=== PATIENT | female | born 1980 | race Caucasian/White ===

== ENCOUNTER → 2016-12-07 | Outpatient (CLI) | payer BC, OTHER ==
[2016-06-01 09:57] VITALS: BP 95/68; PULSE 92
[~2016-12-07] MED LIST: ACET-1311 PO; IBUP1CAP9 PO; IMD/2 PO; MULT-513 PO; PROC1TAB5 PO; ZOLP10TA PO
[2016-12-07 13:28] VITALS: BP 93/68; PULSE 96; TEMP 36.8; O2SAT 98
--- NOTE | 2016-12-07 17:00 | Radiation Oncology Follow-Up ---
Radiation Oncology Follow-Up Date of Visit Dec 07, 2016. Reason For Visit 6 month follow-up Radiation Completion Date External Beam with Tandem and Ovoid x 5 04/28/16 Diagnosis (1) Cervical carcinoma Status: Resolved Onset Date: 12/27/2015 Histology Subtype: squamous cell carcinoma Stage: ll ((A2)) Permanent Comment: Abnormal vaginal bleeding 6 months Pap smear 12/27/2015 showing squamous cell carcinoma Cervical biopsy 12/28/2015 poorly differentiated squamous cell carcinoma Status post robotic laparoscopic salpingectomy with bilateral Oophoropexy. Pelvic and periaortic lymphadenectomy 02/08/2016 Status post completion of radiation therapy. She received external beam therapy followed by tandem and ovoids. The dose of external beam therapy was 5280 cGy. The dose of radiation with tandem and ovoids was 2750 cGy. Last Edited By: Brinda Jarrett on May 12, 2016 11:20 History of Present Illness Ms. Rodriguez is a 35-year-old female who is 1 para 1-0-0-1. She presented with heavy vaginal bleeding and was seen at the emergency department. On examination she was found to have heavy vaginal bleeding with a decrease of her hemoglobin to 11. A speculum examination at that time revealed pulling of blood in the posterior vagina and an obvious cervical mass. She had undergone a previous Pap smear on 09/23/2013 that was negative for intraepithelial lesions or malignancies. Case: [id number]. On 12/28/2015 a repeat Pap smear was taken which was positive showing cells consistent with a squamous cell carcinoma. Case: [id number]. A cervical biopsy was also performed of a friable cervical mass. This revealed an infiltrative poorly differentiated squamous cell carcinoma. A solitary focus of invasion into the cervical stroma is seen with a papillary architecture. Case: [id number]. Patient underwent a transvaginal ultrasound on December 27 which showed a uterus measuring 10.0 x 5.6 x 4.2 cm with an endometrial thickness of 7 mm and the cervix that was noted to be bulky without any defined mass measuring 6.6 cm. Right ovary measured 2.7 x 2.1 x 2.2 cm with a 1.4 cm dominant follicle on that side. The left ovary measured 3.2 x 1.4 x 1.3 cm with no free fluid noted in the pelvis. The patient was subsequently seen at [facility] by Dr. Caballero on 01/03/2016. His pelvic exam revealed a 3 x 2 cm exophytic mass noted on the face of the cervix which was difficult to visualize due to bleeding after insertion of the speculum. Additional staging procedures were discussed. On 01/07/2016 the patient underwent a CT scan of the chest abdomen pelvis with IV contrast. No pulmonary nodules or mediastinal or hilar adenopathy was appreciated. In the abdomen no abnormalities were noted of the liver and pancreas spleen or adrenal glands. The kidneys were unremarkable and no pelvic adenopathy was appreciated. The uterus was identified with an exophytic mass extending from the inferior cervix into the upper vagina measuring 3.6 x 4.2 x 6.6 cm. The ovaries and adnexa were normal. No evidence of bony destructive lesions were appreciated. On 01/07/2016 Dr. Caballero performed an examination under anesthesia, repeat cervical biopsy, cystoscopy and rigid bronchoscopy. The patient was noted to have a large exophytic friable lesion in the cervix measuring approximately 8 cm in greatest dimension. The lesion was quite friable and involved the posterior vagina just inferior to the cervix. There was no palpable parametrial involvement. There was normal reflux of urine from the bilateral ureteral orifices. There was no evidence of rectal involvement. The cervical biopsy confirmed squamous cell carcinoma. Accession #: [id number]. Given the large size of the lesion estimated 8 cm the patient was not felt to be a good candidate for primary radical hysterectomy. He therefore recommended a robotic-assisted pelvic and periaortic lymphadenectomy, bilateral oophoropexy and resection of a fimbriated bilateral fallopian tubes. One left pelvic lymph node was identified and was negative for metastatic carcinoma. 2 right sided pelvic lymph nodes were identified and negative for metastatic carcinoma. Periaortic tissue showed no lymph node tissue identified. 3 right common iliac lymph nodes were negative for metastatic carcinoma. The right fallopian tube showed no pathologic alterations in the left fallopian tube showed no pathologic alterations. Accession #: [id number] Caballero discussed with the patient the option of primary radiotherapy along with sensitizing weekly cisplatin 40 mg/ m. The patient did go for a second opinion to see Dr. Rashid Barba on 2015. He did discuss the case with Dr. Caballero and agreed with the recommendation for primary chemoradiation following the subsequent node dissection oophoropexy. Dr. Caballero was kind enough to ask us to see the patient in referral for discussion of the role of definitive chemoradiation. It is for this reason the patient is seen in referral. She was seen by medical oncology and decision was to treat with combined radiation and chemotherapy. She will receive external beam treatment Followed by tandem and ovoids. The external beam treatment was completed 2015 received 5280 cGy. She received 5 tandem and ovoid High-dose treatments. These were each 550 cGy for a total 2750 cGy Interim History She's been doing well over the past 6 months. She denies any vaginal discharge or bleeding. She does have vaginal dryness. She's had no change in urination. Bowel movements are regular. She has had follow-up visits with medical oncology as well as her gynecologic oncologist. She had a Pap smear 2015. This showed atypical squamous cells of undetermined significance. Specimen [id number]. She is for repeat Pap smear in one month. She does become fatigued more easily. She feels there is some sensitivity in the skin in the lower pelvic area since completing the treatment. She is not using the vaginal dilator and she is not sexually active. Her most recent PET scan showed complete response to treatment. Allergies Coded Allergies: No Known Allergies (Unverified , 04/28/16) Home Medications Scheduled Multivitamins/Minerals (Mvi With Minerals), 1 TAB PO QAM Scheduled PRN Acetaminophen (Tylenol), 650 MG PO Q6H PRN for Pain Ibuprofen (Ibuprofen), 200 MG PO Q4H PRN for Pain Loperamide Hcl (Imodium), 2 MG PO DIRECTED PRN for Diarrhea Zolpidem Tartrate (Ambien), 10 MG PO HS PRN for Sleep Review of Systems Gastrointestinal: Symptoms: WNL GI Comments: No fiber supplements;1-2 formed BMs/day Oral: Symptoms: No Problems Respiratory: Symptoms: WNL Urinary: Symptoms: WNL Comments: Some urgency;Wears light pad as precautions;Stress incont - improving Skin: Symptoms: No Problems Other Skin Symptoms: Skin more sensitive in lower pelvic area since treatment Physical Exam Vital Signs Date Time Temp Pulse Resp B/P Pulse Ox O2 Delivery O2 Flow Rate FiO2 12/07/16 13:28 36.8 96 16 93/68 98 Pain: Patient Pain Scale: 0 - 10 Initial Pain Intensity: 0.0 Fatigue: None General Appearance: no apparent distress Eyes: normal inspection, EOMI ENT: normal ENT inspection, hearing grossly normal Respiratory/Chest: lungs clear, no respiratory distress, no accessory muscle use Cardiovascular: regular rate, rhythm, no gallop, no murmur Abdomen: non tender, soft Genitourinary - Female: Normal external genitalia. There is some narrowing of the vagina just inside the introitus. There is mild induration and telangiectasia the posterior wall of the vagina. There are no visible or palpable lesions. There is no vaginal bleeding or discharge. Cervix is smooth without masses or visible lesions. Bimanual examination revealed no areas of tenderness. There are no masses. There is no adenopathy of the groin. Extremities: no pedal edema Neurologic/Psychiatric: no motor/sensory deficits, alert, normal mood/affect Skin: warm/dry Lymphatic: no adenopathy Laboratory Studies Test 12/04/16 13:43 White Blood Count 4.96 K/uL (4.8-10.8) Red Blood Count 4.25 M/uL (4.2-5.4) Hemoglobin 12.7 g/dL (12.0-16.0) Hematocrit 37.1 % (37-47) Mean Corpuscular Volume 87.3 fL (80-100) Mean Corpuscular Hemoglobin 29.9 pg (25-34) Mean Corpuscular Hemoglobin Concent 34.2 g/dl (32-36) Platelet Count 223 K/uL (130-400) Mean Platelet Volume 10.7 fL (7.4-10.4) Neutrophils (%) (Auto) 69.9 % Lymphocytes (%) (Auto) 21.6 % Monocytes (%) (Auto) 7.3 % Eosinophils (%) (Auto) 0.8 % Basophils (%) (Auto) 0.2 % Neutrophils # (Auto) 3.47 K/uL (1.4-6.5) Lymphocytes # (Auto) 1.07 K/uL (1.2-3.4) Monocytes # (Auto) 0.36 K/uL (0.11-0.59) Eosinophils # (Auto) 0.04 K/uL (0-0.5) Basophils # (Auto) 0.01 K/uL (0-0.2) RDW Standard Deviation 43.6 fL (36.4-46.3) RDW Coefficient of Variation 13.7 % (11.5-14.5) Immature Granulocyte % (Auto) 0.2 % Immature Granulocyte # (Auto) 0.01 K/uL (0.00-0.02) Sodium Level 143 mmol/L (136-145) Potassium Level 3.9 mmol/L (3.5-5.1) Chloride Level 107 mmol/L (98-107) Carbon Dioxide Level 28 mmol/L (21-32) Anion Gap 8.0 mmol/L (3-11) Blood Urea Nitrogen 16 mg/dl (7-18) Creatinine 0.80 mg/dl (0.60-1.20) Estimated GFR () 109.2 Estimated GFR (Non- 94.2 BUN/Creatinine Ratio 19.6 (10-20) Random Glucose 100 mg/dl (70-99) Calcium Level 8.8 mg/dl (8.5-10.1) Total Bilirubin 0.3 mg/dl (0.2-1) Aspartate Amino Transferase (AST) 13 U/L (15-37) Alanine Aminotransferase (ALT) 27 U/L (12-78) Alkaline Phosphatase 65 U/L (45-117) Lactate Dehydrogenase 169 U/L (84-246) Total Protein 7.2 gm/dl (6.4-8.2) Albumin 3.7 gm/dl (3.4-5.0) Globulin 3.5 gm/dl (2.5-4.0) Albumin/Globulin Ratio 1.1 (0.9-2) Additional Studies PET/CT CLINICAL HISTORY: Cervical cancer. Restaging following chemotherapy and radiation. TECHNIQUE: A PET/CT was performed from the skull base through the upper thighs following intravenous injection of 15.45 mCi of F 18 FDG IV. The injection was performed at 6:51 AM on July 26, 2016 and imaging began at 7:40 AM on July 26, 2016. Unenhanced CT was performed for attenuation correction purposes and anatomic localization. COMPARISON STUDY: CT of the chest abdomen and pelvis January 07, 2016 and PET/CT March 08, 2016. FINDINGS: Head and neck: No suspicious FDG uptake is identified within the neck. There is no cervical lymphadenopathy. Chest: No suspicious FDG uptake is identified within the chest. There is no thoracic lymphadenopathy. The lungs are suboptimally assessed due to respiratory motion but no suspicious nodules are identified. Abdomen and Pelvis: Marked FDG uptake within the previously described cervical mass has resolved and is now equivalent to background soft tissue. The previously described FDG avid left iliac nodes are now normal in size with no abnormal FDG uptake. No abdominal or pelvic lymphadenopathy is present. Musculoskeletal: No suspicious skeletal uptake is identified. IMPRESSION: Interval resolution of FDG uptake within the previously described cervical mass and left external iliac lymph nodes consistent with a complete response by PET/CT. No FDG avid disease identified. Electronically signed by: Riley Carranza M.D. 07/26/2016 2:11 PM Assessment & Plan Plan: Continue regular follow-up with medical oncology, her PCP, and the gynecologic oncologist. She hasn't appointment for recheck Pap smear in one month. I did advise her that she should start using the vaginal dilator. She previously was instructed to use this twice a week for 10 minutes. She will not need to use the dilator if she becomes sexually active. We asked her to return to our office in 1 year. She will call if she has any questions or concerns in the interim. Total Time In Follow-Up I spent 25 minutes speaking to the patient performing examination. I spent 15 minutes reviewing information in completing this note. Copy To Sterling Martinez D.O.; Skyler Caballero M.D.; Demi Ospina, C.R.N.P.
== END | disposition home or self-care (01) ==
LOC: C.ONC 13:07
PROVIDERS: ATTEND Physician Assistant Medical
DX: Z08 Encounter for follow-up examination after completed treatment for malignant neoplasm (principal); Z92.3 Personal history of irradiation; Z85.41 Personal history of malignant neoplasm of cervix uteri

== ENCOUNTER → 2017-03-19 | Outpatient (CLI) | payer BC ==
[~2017-03-19] MED LIST changes: -PROC1TAB5 PO
[2017-03-19 14:44] LABS: URINE APPEARANCE CLOUDY (CLEAR); URINE BILIRUBIN NEG (NEG); URINE COLOR YELLOW; URINE NITRITE NEG (NEG); URINE PH 5.5 (4.5-7.5); URINE SPECIFIC GRAVITY 1.016 (1.000-1.030); UROBILINOGEN NEG (NEG)
[2017-03-19 14:47] LABS: MANUAL MICROSCOPIC REQUIRED? NO; REVIEW REQ? YES
== END | disposition home or self-care (01) ==
LOC: C.LAB 13:17
PROVIDERS: ATTEND Nurse Practitioner Women's Health
DX: R30.0 Dysuria (principal)

== ENCOUNTER → 2017-03-29 | Outpatient (CLI) | payer BC ==
[2017-03-29 09:40] LABS: URINE APPEARANCE CLOUDY (CLEAR); URINE BILIRUBIN NEG (NEG); URINE COLOR DK YELLOW; URINE EPITHELIAL CELL AUTO >30 /lpf (0-5); URINE NITRITE NEG (NEG); URINE SPECIFIC GRAVITY 1.025 (1.000-1.030); UROBILINOGEN NEG (NEG)
[2017-03-29 09:46] LABS: MANUAL MICROSCOPIC REQUIRED? NO; REVIEW REQ? NO
== END | disposition home or self-care (01) ==
LOC: C.LAB 08:10
PROVIDERS: ATTEND Nurse Practitioner Women's Health
DX: R30.0 Dysuria (principal)

== ENCOUNTER → 2017-06-06 | Outpatient (CLI) | payer BC ==
[~2017-06-06] MED LIST changes: +OPTIRAY 320 IV PRN
--- NOTE | 2017-06-06 07:34 | DIAGNOSTIC IMAGING REPORT ---
CT SCAN OF THE CHEST WITH IV CONTRAST CLINICAL HISTORY: Cervical cancer. COMPARISON STUDY: PET/CT dated 07/26/2016. Chest chest and abdominal CT scans dated 01/07/2016. TECHNIQUE: Following the IV administration of 93 cc of Optiray 320, CT scan of the thorax was performed from the thoracic inlet to the upper abdomen. Images are reviewed in the axial, sagittal, and coronal planes. IV contrast was administered without complication. A dose lowering technique was utilized adhering to the principles of ALARA. CT DOSE: 1579.72 mGy.cm FINDINGS: Thyroid: Imaged portions of the thyroid gland are normal in size and attenuation. A 9 mm low-attenuation nodule is noted in the right lobe. Thoracic aorta: The thoracic aorta is normal in caliber and demonstrates standard 3-vessel arch anatomy. No dissection is seen. Pulmonary vasculature: The pulmonary trunk is top normal in caliber. There are no filling defects identified in the central pulmonary vessels to indicate pulmonary embolus. Note that this examination was not protocoled for evaluation of the pulmonary arteries. Heart: The heart is normal in size and configuration, and without pericardial effusion. Lungs and pleural spaces: The lungs and pleural spaces are clear. Mediastinum: There is ill-defined low attenuation soft tissue in the anterior mediastinum, likely representing thymic rebound. This is similar to previous. There is no mediastinal lymphadenopathy. Bertha: Clear. Axillae: There is no axillary lymphadenopathy. Upper abdomen: Scattered hepatic hypodensities measure up to 1.3 cm are unchanged dating back to 01/05/2016. Is likely represent small cysts and/or hemangiomas. Hepatic steatosis is suggested. There is a tiny hiatal hernia. Skeletal structures: No lytic or blastic bony lesions are seen. IMPRESSION: 1. There is no evidence of intrathoracic metastatic disease. 2. The lungs are clear. 3. Question residual thymic tissue/thymic rebound in the anterior mediastinum. This is similar to prior studies. 4. There is a 9 mm low-attenuation nodule in the right thyroid lobe. If not previously performed a thyroid ultrasound is recommended for further assessment. Electronically signed by: Hardik Mcguire M.D. 06/06/2017 7:33 AM Dictated Date/Time: 06/06/2017 7:27 AM
--- NOTE | 2017-06-06 07:37 | DIAGNOSTIC IMAGING REPORT ---
ABD/PELVIS IV CONTRAST ONLY CLINICAL HISTORY: 36 years-old Female presenting with CERVICAL CA, follow-up. TECHNIQUE: Multidetector CT of the abdomen and pelvis was performed after the administration of oral and intravenous contrast. IV contrast: 93 mL of Optiray 320. A dose lowering technique was used consistent with the principles of ALARA (as low as reasonably achievable). COMPARISON: 01/07/2016. CT DOSE (mGy.cm): The estimated cumulative dose is 1579.[address] chest. FINDINGS: [employer] topogram: Unremarkable. Lung bases: Lung bases clear. Normal heart size. No pericardial or pleural effusion. Liver: Normal morphology. Well-defined hypodensities scattered throughout the liver parenchyma unchanged from prior exam and consistent with hepatic cysts or hamartomas. Patent hepatic vasculature. Biliary: No intrahepatic or extrahepatic biliary ductal dilatation. Normal gallbladder. Pancreas: Normal. Spleen: Normal. Adrenal glands: Normal. Kidneys and ureters: Normal. No hydronephrosis. Bladder: Mild circumferential bladder wall thickening. Pelvic organs: Hypoattenuation of the cervix with fascial thickening along the mesorectal fascia and paracervical region. Translocation of the ovaries to the bilateral lower quadrants. Bowel: Large stool burden in the rectum and sigmoid colon. No bowel obstruction. Normal appendix. Peritoneal cavity: No free fluid or intraperitoneal gas. Vasculature: Aorta and IVC patent and normal in caliber. Lymph nodes: No enlarged lymph nodes in the abdomen or pelvis. Abdominal wall: Small fat-containing umbilical hernia. Musculoskeletal: Normal. IMPRESSION: 1. No evidence of metastatic disease in abdomen or pelvis. 2. Hypoattenuation of the cervix with associated fascial thickening in the pelvis could be secondary to post radiation change. 3. 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 Electronically signed by: Iván Shearer M.D. 06/06/2017 7:35 AM Dictated Date/Time: 06/06/2017 7:28 AM
== END | disposition home or self-care (01) ==
LOC: C.CTS 06:28
PROVIDERS: ATTEND Internal Medicine Hematology & Oncology
DX: C53.0 Malignant neoplasm of endocervix (principal); E04.1 Nontoxic single thyroid nodule

== ENCOUNTER → 2017-06-13 | Outpatient (CLI) | payer BC ==
[~2017-06-13] MED LIST changes: -OPTIRAY 320 IV PRN
--- NOTE | 2017-06-13 09:02 | DIAGNOSTIC IMAGING REPORT ---
THYROID ULTRASONOGRAPHY CLINICAL HISTORY: Multinodular thyroid gland. Cervical carcinoma. COMPARISON STUDY: No previous studies for comparison. FINDINGS: The right lobe of thyroid measures 5 x 1.7 x 1.6 cm. The left lobe measures 5.1 x 1.4 x 1.6 cm. Within the upper pole of the right lobe of the thyroid there is a circumscribed, wider than tall, predominantly cystic nodule measuring 12 x 9 x 6 mm. Within the midpole there is a hypoechoic nodule measuring 5 x 3 x 5 mm. Within the left lobe, there is a upper pole hypoechoic nodule measuring 4 x 3 x 3 mm. None of the nodules have suspicious ultrasonographic characteristics. IMPRESSION: Multinodular thyroid gland. There are no nodules with suspicious ultrasonographic characteristics. Electronically signed by: Valdemar Monet M.D. 06/13/2017 9:00 AM Dictated Date/Time: 06/13/2017 8:58 AM
== END | disposition home or self-care (01) ==
LOC: C.ULTR 08:03
PROVIDERS: ATTEND Nurse Practitioner Family
DX: C53.0 Malignant neoplasm of endocervix (principal); E04.2 Nontoxic multinodular goiter

== ENCOUNTER → 2017-12-11 | Outpatient (CLI) | payer OTHER ==
[~2017-12-11] MED LIST changes: +SPR28 PO
[2017-12-11 13:23] VITALS: BP 93/60; PULSE 86; TEMP 36.6; O2SAT 96
--- NOTE | 2017-12-11 14:28 | Radiation Oncology Follow-Up ---
Radiation Oncology Follow-Up Date of Visit Dec 11, 2017. Reason For Visit Annual follow-up Radiation Completion Date 04/28/16 ext beam with tandem and ovoids Diagnosis (1) Cervical carcinoma Status: Resolved Onset Date: 12/27/2015 Histology Subtype: Squamous cell carcinoma Stage: ll (A 2) Permanent Comment: Abnormal vaginal bleeding 6 months Pap smear 12/27/2015 showing squamous cell carcinoma Cervical biopsy 12/28/2015 poorly differentiated squamous cell carcinoma Status post robotic laparoscopic salpingectomy with bilateral Oophoropexy. Pelvic and periaortic lymphadenectomy 02/08/2016 Status post completion of radiation therapy. She received external beam therapy followed by tandem and ovoids. The dose of external beam therapy was 5280 cGy. The dose of radiation with tandem and ovoids was 2750 cGy. Last Edited By: Brinda Jarrett on May 12, 2016 11:20 History of Present Illness Ms. Kendrick is a 1 para 1-0-0-1. She presented with heavy vaginal bleeding and was seen at the emergency department. On examination she was found to have heavy vaginal bleeding with a decrease of her hemoglobin to 11. A speculum examination at that time revealed pulling of blood in the posterior vagina and an obvious cervical mass. She had undergone a previous Pap smear on 09/23/2013 that was negative for intraepithelial lesions or malignancies. Case: [id number]. On 12/28/2015 a repeat Pap smear was taken which was positive showing cells consistent with a squamous cell carcinoma. Case: [id number]. A cervical biopsy was also performed of a friable cervical mass. This revealed an infiltrative poorly differentiated squamous cell carcinoma. A solitary focus of invasion into the cervical stroma is seen with a papillary architecture. Case: [id number]. Patient underwent a transvaginal ultrasound on December 27 which showed a uterus measuring 10.0 x 5.6 x 4.2 cm with an endometrial thickness of 7 mm and the cervix that was noted to be bulky without any defined mass measuring 6.6 cm. Right ovary measured 2.7 x 2.1 x 2.2 cm with a 1.4 cm dominant follicle on that side. The left ovary measured 3.2 x 1.4 x 1.3 cm with no free fluid noted in the pelvis. The patient was subsequently seen at [facility] by Dr. Caballero on 01/03/2016. His pelvic exam revealed a 3 x 2 cm exophytic mass noted on the face of the cervix which was difficult to visualize due to bleeding after insertion of the speculum. Additional staging procedures were discussed. On 01/07/2016 the patient underwent a CT scan of the chest abdomen pelvis with IV contrast. No pulmonary nodules or mediastinal or hilar adenopathy was appreciated. In the abdomen no abnormalities were noted of the liver and pancreas spleen or adrenal glands. The kidneys were unremarkable and no pelvic adenopathy was appreciated. The uterus was identified with an exophytic mass extending from the inferior cervix into the upper vagina measuring 3.6 x 4.2 x 6.6 cm. The ovaries and adnexa were normal. No evidence of bony destructive lesions were appreciated. On 01/07/2016 Dr. Caballero performed an examination under anesthesia, repeat cervical biopsy, cystoscopy and rigid bronchoscopy. The patient was noted to have a large exophytic friable lesion in the cervix measuring approximately 8 cm in greatest dimension. The lesion was quite friable and involved the posterior vagina just inferior to the cervix. There was no palpable parametrial involvement. There was normal reflux of urine from the bilateral ureteral orifices. There was no evidence of rectal involvement. The cervical biopsy confirmed squamous cell carcinoma. Accession #: [id number]. Given the large size of the lesion estimated 8 cm the patient was not felt to be a good candidate for primary radical hysterectomy. He therefore recommended a robotic-assisted pelvic and periaortic lymphadenectomy, bilateral oophoropexy and resection of a fimbriated bilateral fallopian tubes. One left pelvic lymph node was identified and was negative for metastatic carcinoma. 2 right sided pelvic lymph nodes were identified and negative for metastatic carcinoma. Periaortic tissue showed no lymph node tissue identified. 3 right common iliac lymph nodes were negative for metastatic carcinoma. The right fallopian tube showed no pathologic alterations in the left fallopian tube showed no pathologic alterations. Accession #: [id number] Caballero discussed with the patient the option of primary radiotherapy along with sensitizing weekly cisplatin 40 mg/ m. The patient did go for a second opinion to see Dr. Rashid Barba on 2015. He did discuss the case with Dr. Caballero and agreed with the recommendation for primary chemoradiation following the subsequent node dissection oophoropexy. Dr. Caballero was kind enough to ask us to see the patient in referral for discussion of the role of definitive chemoradiation. It is for this reason the patient is seen in referral. She was seen by medical oncology and decision was to treat with combined radiation and chemotherapy. She will receive external beam treatment Followed by tandem and ovoids. The external beam treatment was completed 2015 received 5280 cGy. She received 5 tandem and ovoid High-dose treatments. These were each 550 cGy for a total 2750 cGy Interim History She has been doing well over the past year. She denies any vaginal discharge or bleeding. She has had no issues with change of bowel habits. There is been no change in urination. She is been seen regularly by gynecologic oncology. She was seen 2 weeks ago and had a Pap smear. She did receive report that this was normal. She has been seen by medical oncology and had recheck CT scans last May. These did not show any recurrence of disease. She was diagnosed with a multinodular goiter at this past year. Allergies Coded Allergies: No Known Allergies (Unverified , 04/28/16) Home Medications Scheduled Ethinyl Estrad/Norgestimate (Sprintec 28), 1 TAB PO DAILY Multivitamins/Minerals (Mvi With Minerals), 1 TAB PO QAM Scheduled PRN Acetaminophen (Tylenol), 650 MG PO Q6H PRN for Pain Ibuprofen (Ibuprofen), 200 MG PO Q4H PRN for Pain Loperamide Hcl (Imodium), 2 MG PO DIRECTED PRN for Diarrhea Zolpidem Tartrate (Ambien), 10 MG PO HS PRN for Sleep Review of Systems Gastrointestinal: Symptoms: Diarrhea GI Comments: occ diarrhea Oral: Symptoms: No Problems Respiratory: Symptoms: WNL Urinary: Symptoms: WNL Skin: Symptoms: No Problems Physical Exam Vital Signs Date Time Temp Pulse Resp B/P (MAP) Pulse Ox O2 Delivery O2 Flow Rate FiO2 12/11/17 13:23 36.6 86 20 93/60 96 Fatigue: None General Appearance: no apparent distress Eyes: normal inspection, EOMI ENT: normal ENT inspection, hearing grossly normal Respiratory/Chest: lungs clear, no respiratory distress, no accessory muscle use Cardiovascular: regular rate, rhythm, no gallop, no murmur Abdomen: non tender, soft, no organomegaly Genitourinary - Female: external genitalia normal, + pertinent finding (There is foreshortening of the vagina. There is no vaginal discharge or irritation. Cervix is normal with easy visualization of the office. There are no palpable masses of the vagina.) Extremities: no pedal edema Neurologic/Psychiatric: no motor/sensory deficits, alert, normal mood/affect Skin: warm/dry Pain Management Patient Reports Pain: No Pain Management Plan She denies pain therefore requires no pain management. Laboratory Laboratory Results: not applicable Pathology Pathology Results: were reviewed, and pertinent findings noted in HPI Imaging Imaging Studies: were reviewed, and pertinent findings noted below Imaging Comments Patient: YAYA KENDRICK Address1: [address] [place] [address] Rec: [id number] Address2: Acct ID: [id number] [facility] Zip: [place] [address] Date: 1980 Sex: F Room/Bed: Ref Phy: Santosh Rothman M.D. SC: C.CTS Att Phy: Sterling Martinez D.O. Report #: [id number] Neelima Phy: Demi Ospina, C.R.N.PPeter Test: APIV Admit Phy: Sustainability Manager: [facility] Interpreting Phy: Iván Shearer MD Diagnosis: CERVICAL CA Ordering Phy: Sterling Martinez D.O. Service Date: 06/06/17 Admit Date: 06/06/17 MNE: [id number] CONF: DICTATED BY: Iván Shearer MD]] CC: Sterling Martinez D.O. Schrack, Shari A., C.R.N.PSantosh Jacobo M.D. Endcc: [~ rep ct add3]] ABD/PELVIS IV CONTRAST ONLY CLINICAL HISTORY: 36 years-old Female presenting with CERVICAL CA, follow-up. TECHNIQUE: Multidetector CT of the abdomen and pelvis was performed after the administration of oral and intravenous contrast. IV contrast: 93 mL of Optiray 320. A dose lowering technique was used consistent with the principles of ALARA (as low as reasonably achievable). COMPARISON: 01/07/2016. CT DOSE (mGy.cm): The estimated cumulative dose is 1579.[address] chest. FINDINGS: Report Analyst topogram: Unremarkable. Lung bases: Lung bases clear. Normal heart size. No pericardial or pleural effusion. Liver: Normal morphology. Well-defined hypodensities scattered throughout the liver parenchyma unchanged from prior exam and consistent with hepatic cysts or hamartomas. Patent hepatic vasculature. Biliary: No intrahepatic or extrahepatic biliary ductal dilatation. Normal gallbladder. Pancreas: Normal. Spleen: Normal. Adrenal glands: Normal. Kidneys and ureters: Normal. No hydronephrosis. Bladder: Mild circumferential bladder wall thickening. Pelvic organs: Hypoattenuation of the cervix with fascial thickening along the mesorectal fascia and paracervical region. Translocation of the ovaries to the bilateral lower quadrants. Bowel: Large stool burden in the rectum and sigmoid colon. No bowel obstruction. Normal appendix. Peritoneal cavity: No free fluid or intraperitoneal gas. Vasculature: Aorta and IVC patent and normal in caliber. Lymph nodes: No enlarged lymph nodes in the abdomen or pelvis. Abdominal wall: Small fat-containing umbilical hernia. Musculoskeletal: Normal. IMPRESSION: 1. No evidence of metastatic disease in abdomen or pelvis. 2. Hypoattenuation of the cervix with associated fascial thickening in the pelvis could be secondary to post radiation change. 3. 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 Electronically signed by: Iván Shearer M.D. 06/06/2017 7:35 AM Dictated Date/Time: 06/06/2017 7:28 AM Additional Studies Thyroid ultrasound showing multi-nodular goiter. Assessment & Plan Plan: Continue regular follow-up. She will be seeing medical oncology and there were plans for recheck scanning following that visit. Continue follow-up with gynecologic oncologist. She continues use of the vaginal dilators. She has a small and medium. She was unable to use the large dilator. We discussed using the dilators twice a week for 10 minutes. She is not currently sexually active. We asked her to return to our office in 1 year. Total Time In Follow-Up I spent 20 minutes speaking to the patient and performing examination. I spent 15 minutes reviewing information and completing this note. AK Copy To Sterling Martinez D.O.; Skyler Caballero M.D.; Demi Ospina, Kong.RPeterNPeterPPeter
== END | disposition home or self-care (01) ==
LOC: C.ONC 13:17
PROVIDERS: ATTEND Physician Assistant Medical
DX: Z08 Encounter for follow-up examination after completed treatment for malignant neoplasm (principal); Z92.3 Personal history of irradiation; Z85.41 Personal history of malignant neoplasm of cervix uteri

== ENCOUNTER → 2017-12-17 | Outpatient (CLI) | payer OTHER ==
--- NOTE | 2017-12-17 11:47 | DIAGNOSTIC IMAGING REPORT ---
THYROID ULTRASOUND HISTORY: THYROID NODULE COMPARISON: Thyroid ultrasound 06/13/2017. FINDINGS: Right lobe: 5.0 x 1.7 x 1.6 cm. Dominant nodule within the upper pole measures 1.2 x 0.6 x 0.9 cm and is cystic. This has slightly decreased in size. This previous measured 1.6 cm. There is a stable 5 mm cystic nodule within echogenic focus. Left lobe: 5.1 x 1.4 x 1.6 cm. Stable 4 mm cystic nodule within the upper pole. Isthmus: 3 mm in thickness. No nodules. IMPRESSION: There again noted a few scattered hypoechoic/cystic nodules within the thyroid gland. Dominant cystic nodule within the right thyroid lobe has slightly decreased in size. These do not meet sonographic criteria for biopsy. Electronically signed by: César Carrrea M.D. 12/17/2017 11:46 AM Dictated Date/Time: 12/17/2017 11:39 AM
== END | disposition home or self-care (01) ==
LOC: C.ULTR 11:11
PROVIDERS: ATTEND Nurse Practitioner Family
DX: E04.2 Nontoxic multinodular goiter (principal); R53.83 Other fatigue